=== PATIENT | male | born 1955 | race Caucasian/White ===

== ENCOUNTER 2016-11-22 19:39 | Inpatient (IN) | payer MEDICARE, OTHER ==
[2016-11-22] MEDS ORDERED: NORMAL SALINE 1000 ML 1,000 ML IV ONE ×2 (19:43→22:45)
--- NOTE | 2016-11-22 20:15 | ER Document Report ---
ED General - General Mode of Arrival: Ambulatory Information source: Patient TRAVEL OUTSIDE OF THE [place] IN LAST 30 DAYS: No - HPI Onset: This evening <ROSA RODRIGUEZ - Last Filed: 11/22/16 22:38> <VIVIAN HERNANDEZ - Last Filed: 11/22/16 23:27> - General Stated Complaint: ALTERED MENTAL STATUS Time Seen by Provider: 11/22/16 19:42 Notes: Patient is a 61 year old male that presents to the emergency department today with complaints of "acting strange" according to the at bedside. states yesterday the patient's urine bag from condom cath was red in color. Patient received 975 mg of tylenol en route secondary to a temperature of 101.3 according to EMS report. Patient and deny a cough or nausea. (ROSA RODRIGUEZ ) - Related Data Allergies/Adverse Reactions: No Known Allergies Allergy (Verified 11/22/16 22:19) Past Medical History - General Information source: Patient - Social History Smoking Status: Never Smoker Frequency of alcohol use: None Drug Abuse: None Lives with: Family Family History: Reviewed & Not Pertinent Neurological Medical History: Reports: Hx Cerebrovascular Accident Musculoskeltal Medical History: Reports Hx Arthritis Psychiatric Medical History: Reports: Hx Depression Past Surgical History: Reports: Hx Orthopedic Surgery - arthroscopy x both knees , left knee replacement, left shoulder - Immunizations Hx Diphtheria, Pertussis, Tetanus Vaccination: Yes Hx Pneumococcal Vaccination: 12/09/07 <ROSA RODRIGUEZ - Last Filed: 11/22/16 22:38> Review of Systems - Review of Systems Constitutional: See HPI, Fever, Other - "acting strange" per EENT: No symptoms reported Cardiovascular: No symptoms reported Respiratory: denies: Cough Gastrointestinal: denies: Nausea Genitourinary: No symptoms reported Male Genitourinary: No symptoms reported Musculoskeletal: No symptoms reported Skin: No symptoms reported Hematologic/Lymphatic: No symptoms reported Neurological/Psychological: No symptoms reported -: Yes All other systems reviewed and negative <ROSA RODRIGUEZ - Last Filed: 11/22/16 22:38> Physical Exam <ROSA RODRIGUEZ - Last Filed: 11/22/16 22:38> <VIVIAN HERNANDEZ - Last Filed: 11/22/16 23:27> - Vital signs Vitals: Temp 99.2 F 11/22/16 19:43 - Notes Notes: Physical Exam: General: Febrile. HEENT: Normocephalic. Atraumatic. PERRL. Extraocular movements intact. Oropharynx clear. Neck: Supple. Non-tender. Respiratory: No respiratory distress. Clear and equal breath sounds bilaterally. Cardiovascular: Tachycardic, regular rhythm. Abdominal: Obese. Non-tender. No distension. Normal Bowel Sounds. Back: Non-tender. No deformity or step off. Extremities: Moves all four extremities. Upper extremities: Normal inspection. Normal ROM. Lower extremities: Chronic edema bilaterally, right greater than left. Neurological: Confused. Normal speech. Psychological: Normal affect. Normal Mood. Skin: Warm. Dry. Normal color. (ROSA RODRIGUEZ) Course - Laboratory Result Diagrams: 11/22/16 20:10 11/22/16 21:30 <ROSA RODRIGUEZ - Last Filed: 11/22/16 22:38> - Laboratory Result Diagrams: 11/22/16 20:10 11/22/16 21:30 - Diagnostic Test Radiology reviewed: Image reviewed, Reports reviewed - EKG Interpretation by Nd EKG shows normal: Sinus rhythm <VIVIAN HERNANDEZ - Last Filed: 11/22/16 23:27> - Re-evaluation Re-evalutation: 11/22/16 Patient is a 61-year-old male who is brought in for his for altered mental status and fever. Patient has been using condom catheter during the day due to a chronic incontinence. Condom catheter is new. Patient has foul-smelling urine. Bacteria in urine. Patient initially had fever which was treated by EMS with Tylenol. He is hot again and receiving another dose of Tylenol. Patient initially was improving with his mental status. Patient's blood pressure has started to drop. I had ordered fluid bolus but this was delayed by nursing due to leg swelling which is chronic for this patient. Second line was placed and patient is now on his third liter of fluid with improvement of his blood pressure. Patient has been given IV antibiotics with urine and blood culture sent. He was discussed with the hospitalist and will be admitted to the ICU. Of note, CT discussed with radiologist. No acute findings on CT per radiologist. (VIVIAN HERNANDEZ) - Vital Signs Vital signs: Temp Pulse Resp BP Pulse Ox 99.2 F 12 92/53 L 100 11/22/16 19:43 11/22/16 22:02 11/22/16 22:02 11/22/16 22:01 - Laboratory Laboratory results interpreted by me: 11/22/16 11/22/16 11/22/16 20:10 20:10 21:30 WBC 15.1 H RBC 4.27 L Hgb 13.4 L Seg Neutrophils % 82.3 H Lymphocytes % 8.4 L Absolute Neutrophils 12.5 H Potassium 3.4 L Glucose 111 H Urine Blood SMALL H Ur Leukocyte Esterase TRACE H Critical Care Note - Critical Care Note Total time excluding time spent on procedures (mins): 90 - Evaluation and management of fever, altered mental status, hypotension, multiple re-evaluations , coordination with hospitalist, admission to ICU, counseling of family <VIVIAN HERNANDEZ - Last Filed: 11/22/16 23:27> Discharge <ROSA RODRIGUEZ - Last Filed: 11/22/16 22:38> - Discharge Admitting Provider: [facility] Admitted: ICU <VIVIAN HERNANDEZ - Last Filed: 11/22/16 23:27> - Discharge Clinical Impression: UTI (urinary tract infection) Qualifiers: Urinary tract infection type: site unspecified Hematuria presence: without hematuria Qualified Code(s): N39.0 - Urinary tract infection, site not specified Sepsis Qualifiers: Sepsis type: sepsis due to unspecified organism Qualified Code(s): A41.9 - Sepsis, unspecified organism Condition: Stable Disposition: ADMITTED INPATIENT Scribe Attestation: 11/22/16 23:25 I personally performed the services described in the documentation, reviewed and edited the documentation which was dictated to the scribe in my presence, and it accurately records my words and actions. (VIVIAN HERNANDEZ) Scribe Documentation - Scribe Written by Omid:: Omid Veras, 11/22/[id number] acting as scribe for :: Madelyn <ROSA RODRIGUEZ - Last Filed: 11/22/16 22:38>
[2016-11-22] MEDS ORDERED: NORMAL SALINE 500 ML IV ONE ×2 (20:30→22:15)
[2016-11-22 20:33] LABS: ABSOLUTE BASOPHILS # (AUTO) 0.1 10^3/uL (0.0-0.2); ABSOLUTE LYMPHOCYTES (AUTO) 1.3 10^3/uL (0.5-4.7); ABSOLUTE MONOCYTES (AUTO) 1.3 10^3/uL (0.1-1.4); ABSOLUTE NEUT (AUTO) 12.5 10^3/uL (1.7-8.2); BASOPHILS % (AUTO) 0.4 % (0-2); EOSINOPHILS % (AUTO) 0.3 % (0-6); HEMATOCRIT 39.4 % (37.9-51.0); HEMOGLOBIN 13.4 g/dL (13.5-17.0); HGB HCT DIFFERENCE 0.8; LYMPHOCYTES % (AUTO) 8.4 % (13-45); MEAN CORPUSCULAR HEMOGLOBIN 31.5 pg (27.0-33.4); MEAN CORPUSCULAR HGB CONC 34.1 g/dL (32.0-36.0); MEAN CORPUSCULAR VOLUME 92 fl (80-97); MONOCYTES % (AUTO) 8.6 % (3-13); RED BLOOD COUNT 4.27 10^6/uL (4.35-5.55); RED CELL DISTRIBUTION WIDTH 13.5 % (11.5-14.0); SEGMENTED NEUTROPHILS % (AUTO) 82.3 % (42-78); WHITE BLOOD COUNT 15.1 10^3/uL (4.0-10.5)
[2016-11-22 20:47] LABS: VENOUS BLOOD BASE EXCESS 1.3 mmol/L; VENOUS BLOOD PCO2 59.7 mmHg (35-63); VENOUS BLOOD PH 7.3 (7.30-7.42)
[2016-11-22 20:52] LABS: APPEARANCE,URINE CLEAR; BILIRUBIN,URINE NEGATIVE (NEGATIVE); GLUCOSE, URINE NEGATIVE (NEGATIVE); KETONES,URINE NEGATIVE (NEGATIVE); LEUKOCYTE ESTERASE,URINE TRACE (NEGATIVE); NITRITE,URINE NEGATIVE (NEGATIVE); PROTEIN,URINE NEGATIVE (NEGATIVE); UROBILINOGEN,URINE NEGATIVE mg/dL (<2.0)
--- NOTE | 2016-11-22 21:38 | RADIOLOGY REPORT (SQ) ---
EXAM DESCRIPTION: CHEST SINGLE VIEW COMPLETED DATE/TIME: 11/22/2016 9:26 pm REASON FOR STUDY: fever, AMS COMPARISON: 10/30/2012. EXAM PARAMETERS: NUMBER OF VIEWS: One view. TECHNIQUE: Single frontal radiographic view of the chest acquired. RADIATION DOSE: NA LIMITATIONS: None. FINDINGS: LUNGS AND PLEURA: Chronic elevation of the left hemidiaphragm. No opacities, masses or pn eumothorax. No pleural effusion. MEDIASTINUM AND HILAR STRUCTURES: No masses. Contour normal. HEART AND VASCULAR STRUCTURES: Heart normal in size. Normal vasculature. BONES: No acute findings. HARDWARE: Spinal stimulator. OTHER: No other significant finding. IMPRESSION: NO ACUTE RADIOGRAPHIC FINDING IN THE CHEST. TECHNICAL DOCUMENTATION: JOB ID: [id number]
[2016-11-22] MEDS ORDERED: CEFEPIME 1 GM/D5W RTU 1 GM/50 ML RTUPB IV ONE (21:41)
[2016-11-22 22:01] LABS: PROTHROMBIN TIME 13.6 SEC (11.4-15.4)
[2016-11-22 22:12] LABS: ALANINE AMINOTRANSFERASE 37 U/L (21-72); ALBUMIN 3.6 g/dL (3.5-5.0); ALKALINE PHOSPHATASE 93 U/L (38-126); ANION GAP 9 (5-19); ASPARTATE AMINO TRANSFERASE 20 U/L (17-59); BILIRUBIN,DIRECT 0.4 mg/dL (0.0-0.4); BILIRUBIN,TOTAL 0.4 mg/dL (0.2-1.3); BLOOD UREA NITROGEN 15 mg/dL (7-20); CALCIUM 8.8 mg/dL (8.4-10.2); CARBON DIOXIDE 26 mmol/L (22-30); CHLORIDE 105 mmol/L (98-107); CREATININE RESULT 0.86 mg/dL (0.52-1.25); GLUCOSE 111 mg/dL (75-110); POTASSIUM 3.4 mmol/L (3.6-5.0); SODIUM 140.2 mmol/L (137-145); TOTAL PROTEIN 6.5 g/dL (6.3-8.2)
[2016-11-22] MEDS ORDERED: ERTAPENEM SODIUM INJ 1 GM VIAL IV ONE (22:33)
[2016-11-22] MEDS ORDERED: DIAZEPAM 2 MG TABLET PO PRN (23:15)
[2016-11-22] MEDS ORDERED: NALOXONE HCL INJ/PF 0.4 MG/1 ML SDV IV ONE (23:16)
[2016-11-22] MEDS ORDERED: MAG HYDROX/AL HYDROX/SIMETH SUSP 30 ML UDCUP PO PRN (23:18)
[2016-11-22] MEDS ORDERED: ONDANSETRON HCL INJ/PF 4 MG/2 ML SDV IV PRN (23:18)
[2016-11-22] MEDS ORDERED: ACETAMINOPHEN 325 MG TABLET PO ONE (23:22)
[2016-11-22] MEDS ORDERED: DEXTROSE 5%-WATER 250 ML with NOREPINEPHRINE BITARTRATE 4 MG IV PRN ×2 (23:22)
--- NOTE | 2016-11-22 23:33 | RADIOLOGY REPORT (SQ) ---
EXAM DESCRIPTION: CT LTD RENAL STONE PROTOCOL ON COMPLETED DATE/TIME: 11/22/2016 11:08 pm REASON FOR STUDY: possible obstruction COMPARISON: None. TECHNIQUE: CT scan of the abdomen and pelvis performed without intravenous or oral contrast. Images reviewed with lung, soft tissue, and bone windows. Reconstructed coronal and sagittal MPR images revi ewed. All images stored on PACS. All CT scanners at this facility use dose modulation, iterative reconstruction, and/or weight based d osing when appropriate to reduce radiation dose to as low as reasonably achievable (ALARA). [facility]: Dose Right [facility]: CareDose [facility]: Dose Right [facility]: Teradose 4D [facility]: Smart [employer] RADIATION DOSE: Up-to-date CT equipment and radiation dose reduction techniques were employed. CTDIv ol: 18.9 mGy. DLP: 1137 mGy-cm.mGy. LIMITATIONS: None. FINDINGS: LOWER CHEST: Basilar atelectasis. No nodules or infiltrates. NON-CONTRASTED LIVER, SPLEEN, ADRENALS: Evaluation limited by lack of IV contrast. No identified sign ificant masses. PANCREAS: No masses. No peripancreatic inflammatory changes. GALLBLADDER: No identified stones by CT criteria. No inflammatory changes to suggest cholecystitis. RIGHT KIDNEY AND URETER: No suspicious masses. Assessment limited by lack of IV contrast. No signif icant calcifications. No hydronephrosis or hydroureter. LEFT KIDNEY AND URETER: Cortical cyst. No suspicious masses. Assessment limited by lack of IV contra st. No significant calcifications. No hydronephrosis or hydroureter. AORTA AND RETROPERITONEUM: No aneurysm. No retroperitoneal masses or adenopathy. BOWEL AND PERITONEAL CAVITY: Prominent stool throughout the colon. No obvious masses or inflammatory changes. No free fluid. APPENDIX: Normal. PELVIS, BLADDER, AND ABDOMINAL WALL:No abnormal masses. No free fluid. Bladder normal. BONES: Marked chronic changes in the left hip with deformity. OTHER: No other significant finding. IMPRESSION: PROMINENT STOOL THROUGHOUT THE COLON, POSSIBLY CONSTIPATION. OTHER INCIDENTAL CHRONIC F INDINGS ABOVE. NO OTHER SIGNIFICANT OR ACUTE PROCESS IN THE ABDOMEN OR PELVIS. COMMENT: Quality ID # [id number]: Final reports with documentation of one or more dose reduction techniques (e.g., Automated exposure control, adjustment of the mA and/or kV according to patient size, use of iterative reconstruction technique) TECHNICAL DOCUMENTATION: JOB ID: [id number]- All Rights Reserved
[2016-11-22] MEDS ORDERED: NALOXONE HCL INJ/PF 0.4 MG/1 ML SDV ONE (23:39)
[2016-11-22 23:49] LABS: CREATINE KINASE MB 0.63 ng/mL (<4.55)
[2016-11-22 23:53] LABS: TROPONIN I < 0.012 ng/mL
[2016-11-23] MEDS ORDERED: NOREPINEPHRINE BITARTRATE INJ/PF 4 MG/4 ML SDV IV ONE
[2016-11-23] MEDS: IPRATROPIUM/ALBUTEROL 0.5-2.5 MG/3 ML AMPUL NEB SCH ×4 (00:28→23:41)
[2016-11-23] MEDS ORDERED: LACTULOSE SYRUP 20 GM/30 ML UDCUP PO ONE (01:28)
[2016-11-23 01:38] LABS: URINE BARBITURATES SCREEN NEGATIVE; URINE METHADONE SCREEN NEGATIVE; URINE OPIATES LOW UNCONFIRMED POSITIVE; URINE PHENCYCLIDINE SCREEN NEGATIVE
[2016-11-23] MEDS ORDERED: DIAZEPAM 2 MG TABLET PO PRN (03:24)
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
[2016-11-23] MEDS: HEPARIN SOD (PORCINE) 5,000 UNIT/ML 1 ML SYRINGE SUBCUT SCH ×3 (06:03→22:06)
[2016-11-23 06:58] LABS: ABSOLUTE BASOPHILS # (AUTO) 0.1 10^3/uL (0.0-0.2); ABSOLUTE EOSINOPHILS # (AUTO) 0.1 10^3/uL (0.0-0.6); ABSOLUTE LYMPHOCYTES (AUTO) 1.4 10^3/uL (0.5-4.7); ABSOLUTE MONOCYTES (AUTO) 1.2 10^3/uL (0.1-1.4); ABSOLUTE NEUT (AUTO) 10.8 10^3/uL (1.7-8.2); BASOPHILS % (AUTO) 0.4 % (0-2); EOSINOPHILS % (AUTO) 0.5 % (0-6); LYMPHOCYTES % (AUTO) 10.6 % (13-45); MEAN CORPUSCULAR HEMOGLOBIN 31.3 pg (27.0-33.4); MEAN CORPUSCULAR HGB CONC 33.3 g/dL (32.0-36.0); MEAN CORPUSCULAR VOLUME 94 fl (80-97); MONOCYTES % (AUTO) 8.6 % (3-13); RED BLOOD COUNT 3.84 10^6/uL (4.35-5.55); SEGMENTED NEUTROPHILS % (AUTO) 79.9 % (42-78); WHITE BLOOD COUNT 13.5 10^3/uL (4.0-10.5)
[2016-11-23 07:03] LABS: ALANINE AMINOTRANSFERASE 36 U/L (21-72); ALBUMIN 3.4 g/dL (3.5-5.0); ALKALINE PHOSPHATASE 84 U/L (38-126); ANION GAP 10 (5-19); ASPARTATE AMINO TRANSFERASE 17 U/L (17-59); BILIRUBIN,DIRECT 0.4 mg/dL (0.0-0.4); BILIRUBIN,TOTAL 0.6 mg/dL (0.2-1.3); BLOOD UREA NITROGEN 11 mg/dL (7-20); CALCIUM 8.6 mg/dL (8.4-10.2); CARBON DIOXIDE 26 mmol/L (22-30); CHLORIDE 106 mmol/L (98-107); CREATINE KINASE 60 U/L (55-170); CREATININE RESULT 0.74 mg/dL (0.52-1.25); GLUCOSE 100 mg/dL (75-110); POTASSIUM 3.2 mmol/L (3.6-5.0); SODIUM 141.7 mmol/L (137-145); TOTAL PROTEIN 6.4 g/dL (6.3-8.2)
[2016-11-23 07:12] LABS: CREATINE KINASE MB 0.64 ng/mL (<4.55)
[2016-11-23 07:16] LABS: TROPONIN I < 0.012 ng/mL
[2016-11-23] MEDS ORDERED: POTASSIUM CHLORIDE 10 MEQ TABLET.SA PO ONE (08:31)
--- NOTE | 2016-11-23 08:43 | PROGRESS NOTE E ---
Progress Note NAME: ADALID MUELLER : 1955 AGE: 61Y DATE: 11/23/2016 ROOM: 609 SUBJECTIVE: The patient is a 61-year-old male, who has a past medical history of CVA in the past with sepsis syndrome, sleep apnea, urinary tract incontinence, bilateral venous stasis, anxiety, opiate dependence, multiple pain medications. He takes Xanax, as well as Ambien at night. He was brought to the emergency room because he passed out. Urinalysis showed he had some UTI. He is feeling better now and he is awake, alert and oriented. His symptoms resolved. OBJECTIVE: GENERAL: The patient is lying in bed, comfortable, not in distress. VITAL SIGNS: Saturation 93%, heart rate 84, blood pressure 105/63, HEAD: Normocephalic, atraumatic. Pupils are equal, round, reactive to light and accommodation bilaterally. Extraocular movements intact. EARS: Tympanic membranes intact bilaterally. No discharge from the ears. NOSE: No discharge from the nose. CARDIOVASCULAR: Normal S1, S2. Regular rate and rhythm. No murmur. No gallop. RESPIRATORY: Clear. ABDOMEN: Soft, nontender. MUSCULOSKELETAL: No edema. NEUROLOGICAL: Awake, alert. SKIN: No rash. LABORATORY: White blood count 15.5, hemoglobin 12, hematocrit 36. Sodium 141, potassium 3.2, creatinine 0.7. ABG: pH 12.3, PCO2 59, bicarb 13. INR 0.9. Chest x-ray unremarkable. ASSESSMENT: The patient is a 61-year-old with: 1. ALTERED MENTAL STATUS. The cause is unknown, probably from hypertension and medication. 2. POSSIBLE URINARY TRACT INFECTION. 3. SEPSIS SYNDROME. 4. HYPOTENSION. PLAN: 1. Limit benzodiazepines. 2. Continue IV for hydration. 3. Continue IV antibiotics. He is on ertapenem. 4. We will order CT scan to rule out obstruction tomorrow morning. 5. Medical necessity, he needs to stay for IV antibiotics and hypotension, as well as IV fluids. DICTATING PHYSICIAN: BUD VILLALBA M.D. [id number] PHY#: [id number] ID: [id number] JOB#: [id number] ACCT: [id number] cc: >
[2016-11-23] MEDS: DOCUSATE SODIUM 100 MG CAPSULE PO SCH ×2 (09:27→17:52)
[2016-11-23] MEDS: ARIPIPRAZOLE 5 MG TABLET PO SCH (09:27)
[2016-11-23] MEDS: CLOPIDOGREL BISULFATE 75 MG TABLET PO SCH (09:27)
[2016-11-23] MEDS ORDERED: ERTAPENEM SODIUM 1 GM in NORMAL SALINE 50 ML IV SCH (10:00)
[2016-11-23] MEDS ORDERED: CEFEPIME HCL 1.5 GM in DEXTROSE 5%-WATER 50 ML IV SCH (10:00)
--- NOTE | 2016-11-23 11:26 | RADIOLOGY REPORT (SQ) ---
EXAM DESCRIPTION: CT HEAD WITHOUT COMPLETED DATE/TIME: 11/23/2016 11:16 am REASON FOR STUDY: AMS on admission COMPARISON: 10/28/2012. TECHNIQUE: Axial images acquired through the brain without intravenous contrast. Images reviewed wi th bone, brain and subdural windows. Images stored on PACS. All CT scanners at this facility use dose modulation, iterative reconstruction, and/or weight based d osing when appropriate to reduce radiation dose to as low as reasonably achievable (ALARA). [facility]: Dose Right [facility]: CareDose [facility]: Dose Right [facility]: Teradose 4D [facility]: [employer] RADIATION DOSE: Up-to-date CT equipment and radiation dose reduction techniques were employed. CTDIv ol: 64.6 mGy. DLP: 1292 mGy-cm. mGy. LIMITATIONS: None. FINDINGS: VENTRICLES: Normal size and contour. CEREBRUM: No masses. No hemorrhage. No midline shift. No evidence for acute infarction. Normal gra y/white matter differentiation. No areas of low density in the white matter. CEREBELLUM: No masses. No hemorrhage. No alteration of density. No evidence for acute infarction. EXTRAAXIAL SPACES: No fluid collections. No masses. ORBITS AND GLOBE: No intra- or extraconal masses. Normal contour of globe without masses. CALVARIUM: No fracture. Small defect secondary to judah hole on the right. PARANASAL SINUSES: No fluid or mucosal thickening. SOFT TISSUES: No mass or hematoma. OTHER: No other significant finding. IMPRESSION: NO ACUTE FINDINGS. COMMENT: Quality ID # [id number]: Final reports with documentation of one or more dose reduction techniques (e.g., Automated exposure control, adjustment of the mA and/or kV according to patient size, use of iterative reconstruction technique) TECHNICAL DOCUMENTATION: JOB ID: [id number] [employer]- All Rights Reserved
--- NOTE | 2016-11-23 11:39 | EKG REPORT ---
SEVERITY:- ABNORMAL ECG - SINUS TACHYCARDIA PROBABLE POSTERIOR INFARCT : Confirmed by: Whit Burdick 23-Nov-2016 11:38:36
[2016-11-23 14:14] LABS: CREATINE KINASE MB 0.57 ng/mL (<4.55)
[2016-11-23 14:18] LABS: TROPONIN I < 0.012 ng/mL
[2016-11-23] MEDS: ERTAPENEM SODIUM 1 GM in NORMAL SALINE 50 ML IV SCH (22:05)
[2016-11-23] MEDS: FLUTICASONE NASAL SPRAY 50 MCG/SPRY 120 SPRAY/16 GM NAREB SCH (22:06)
[2016-11-23] MEDS: DIAZEPAM 5 MG TABLET PO PRN (22:07)
[2016-11-24 04:16] LABS: ABSOLUTE BASOPHILS # (AUTO) 0.1 10^3/uL (0.0-0.2); ABSOLUTE EOSINOPHILS # (AUTO) 0.1 10^3/uL (0.0-0.6); ABSOLUTE LYMPHOCYTES (AUTO) 1.7 10^3/uL (0.5-4.7); ABSOLUTE MONOCYTES (AUTO) 0.7 10^3/uL (0.1-1.4); BASOPHILS % (AUTO) 0.5 % (0-2); EOSINOPHILS % (AUTO) 1.1 % (0-6); HEMOGLOBIN 12.4 g/dL (13.5-17.0); HGB HCT DIFFERENCE 1.2; LYMPHOCYTES % (AUTO) 16.2 % (13-45); MEAN CORPUSCULAR HEMOGLOBIN 31.7 pg (27.0-33.4); MEAN CORPUSCULAR HGB CONC 34.4 g/dL (32.0-36.0); MEAN CORPUSCULAR VOLUME 92 fl (80-97); MONOCYTES % (AUTO) 6.9 % (3-13); SEGMENTED NEUTROPHILS % (AUTO) 75.3 % (42-78); WHITE BLOOD COUNT 10.6 10^3/uL (4.0-10.5)
[2016-11-24 04:26] LABS: ALANINE AMINOTRANSFERASE 36 U/L (21-72); ALBUMIN 3.7 g/dL (3.5-5.0); ALKALINE PHOSPHATASE 90 U/L (38-126); ANION GAP 11 (5-19); ASPARTATE AMINO TRANSFERASE 22 U/L (17-59); BILIRUBIN,DIRECT 0.4 mg/dL (0.0-0.4); BILIRUBIN,TOTAL 0.4 mg/dL (0.2-1.3); BLOOD UREA NITROGEN 12 mg/dL (7-20); CALCIUM 8.9 mg/dL (8.4-10.2); CARBON DIOXIDE 23 mmol/L (22-30); CHLORIDE 109 mmol/L (98-107); CREATININE RESULT 0.74 mg/dL (0.52-1.25); GLUCOSE 106 mg/dL (75-110); POTASSIUM 3.2 mmol/L (3.6-5.0); SODIUM 142.5 mmol/L (137-145); TOTAL PROTEIN 6.8 g/dL (6.3-8.2)
[2016-11-24] MEDS: HEPARIN SOD (PORCINE) 5,000 UNIT/ML 1 ML SYRINGE SUBCUT SCH ×3 (06:10→22:50)
[2016-11-24] MEDS ORDERED: LACTULOSE SYRUP 20 GM/30 ML UDCUP PO ONE (07:39)
[2016-11-24] MEDS: IPRATROPIUM/ALBUTEROL 0.5-2.5 MG/3 ML AMPUL NEB SCH ×2 (07:57→17:26)
[2016-11-24] MEDS: DOCUSATE SODIUM 100 MG CAPSULE PO SCH ×2 (08:02→17:23)
[2016-11-24] MEDS: CLOPIDOGREL BISULFATE 75 MG TABLET PO SCH (08:03)
[2016-11-24] MEDS: ARIPIPRAZOLE 5 MG TABLET PO SCH (08:04)
[2016-11-24] MEDS: POTASSIUM CHLORIDE 10 MEQ TABLET.SA PO SCH ×2 (08:05→22:51)
--- NOTE | 2016-11-24 08:18 | PROGRESS NOTE E ---
Progress Note NAME: ADALID MUELLER : 1955 AGE: 61Y DATE: 11/24/2016 ROOM: 609 SUBJECTIVE: The patient is a 61-year-old male, who has a past medical history of CVA in the past with sepsis syndrome, sleep apnea, urinary incontinence, bilateral venous stasis, anxiety, opiate dependence, multiple pain medications. He was admitted with confusion yesterday, felt to be due to medications. CT scan of the head was unremarkable. He had urinalysis showing some UTI. Today, he is feeling much better; however, he had some confusion last night and also a combination of intoxication. OBJECTIVE: GENERAL: The patient is lying in bed, comfortable, not in distress. VITAL SIGNS: Blood pressure 134/90, heart rate 86, temperature 98.6, saturation 95% on room air. HEAD: Normocephalic, atraumatic. Pupils are equal, round, reactive to light and accommodation bilaterally. Extraocular movements intact. EARS: Tympanic membranes intact bilaterally. No discharge from the ears. NOSE: No discharge from the nose. NECK: Supple. No JVD. No thyromegaly. No lymphadenopathy. CARDIOVASCULAR: Normal S1, S2. Regular rate and rhythm. No murmur. No gallop. RESPIRATORY: Clear. ABDOMEN: Soft, nontender. MUSCULOSKELETAL: No edema. NEUROLOGICAL: Awake, alert. SKIN: No rash. LABORATORY: White blood count 10.6, hemoglobin 12.4. Sodium 142, potassium 3.2, creatinine 0.7. Urinalysis was unremarkable. ASSESSMENT: The patient is a 61-year-old with: 1. ALTERED MENTAL STATUS, PROBABLY FROM MEDICATION AND URINARY TRACT INFECTION, RESOLVED. 2. POSSIBLE URINARY TRACT INFECTION. 3. POSSIBLE SEPSIS SYNDROME. 4. HYPOTENSION. PLAN: 1. Limit benzodiazepines. 2. Continue IV fluid. 3. Continue IV antibiotics. He is on ertapenem. 4. CT scan of the head was unremarkable, no stroke. Physical therapy. 5. Replace his potassium with KCL 20 mEq daily. 6. Lactulose for constipation. 7. Laboratory tomorrow morning. 8. Medical necessity for IV antibiotic. DICTATING PHYSICIAN: BUD VILLALBA M.D. [id number] PHY#: [id number] ID: [id number] JOB#: [id number] ACCT: [id number] cc: >
[2016-11-24] MEDS ORDERED: (PENDING PHARMACY ID) (Mirabegron [Myrbetriq] 50 MG) PO SCH (10:00)
[2016-11-24] MEDS ORDERED: (PENDING PHARMACY ID) (Diclofenac Epolamine [Flector] 1 PATCH) TOP SCH (10:00)
[2016-11-24] MEDS ORDERED: (PENDING PHARMACY ID) (Diclofenac Sodium [Voltaren] 4 GM) TOP SCH (10:00)
[2016-11-24] MEDS ORDERED: CHOLECALCIFEROL (D3) 400 UNIT TABLET PO SCH (10:00)
[2016-11-24] MEDS ORDERED: VENLAFAXINE HCL 75 MG CAP.SR.24H PO ONE (11:30)
[2016-11-24] MEDS ORDERED: THIAMINE HCL 100 MG TABLET PO ONE (11:30)
[2016-11-24] MEDS: MODAFINIL 100 MG TABLET PO SCH (12:12)
[2016-11-24] MEDS ORDERED: BISACODYL 10 MG SUPP.RECT PR PRN (14:10)
[2016-11-24] MEDS: MORPHINE SULFATE SR 30 MG TABLET PO PRN (15:31)
[2016-11-24] MEDS: CHOLECALCIFEROL (D3) 400 UNIT TABLET PO SCH (17:23)
[2016-11-24] MEDS: THIAMINE HCL 100 MG TABLET PO SCH (17:24)
[2016-11-24] MEDS ORDERED: ROPINIROLE HCL 4 MG PO SCH (22:00)
[2016-11-24] MEDS ORDERED: IMIPRAMINE PAMOATE 75 MG PO SCH (22:00)
[2016-11-24] MEDS ORDERED: SIMVASTATIN 40 MG TABLET PO SCH (22:00)
[2016-11-24] MEDS: FLUTICASONE NASAL SPRAY 50 MCG/SPRY 120 SPRAY/16 GM NAREB SCH (22:49)
[2016-11-24] MEDS: ERTAPENEM SODIUM 1 GM in NORMAL SALINE 50 ML IV SCH (22:50)
[2016-11-24] MEDS: TOPIRAMATE 100 MG TABLET PO SCH (22:51)
[2016-11-24] MEDS: SIMVASTATIN 10 MG TABLET PO SCH (22:51)
[2016-11-24] MEDS: VENLAFAXINE HCL 75 MG CAP.SR.24H PO SCH (22:52)
[2016-11-24] MEDS: ROPINIROLE HCL 2 MG TABLET PO SCH (22:52)
[2016-11-24] MEDS: DIAZEPAM 5 MG TABLET PO PRN (22:52)
[2016-11-25] MEDS: IPRATROPIUM/ALBUTEROL 0.5-2.5 MG/3 ML AMPUL NEB SCH ×3 (00:31→16:54)
[2016-11-25 05:02] LABS: ABSOLUTE BASOPHILS # (AUTO) 0.1 10^3/uL (0.0-0.2); ABSOLUTE EOSINOPHILS # (AUTO) 0.2 10^3/uL (0.0-0.6); ABSOLUTE LYMPHOCYTES (AUTO) 2.4 10^3/uL (0.5-4.7); ABSOLUTE MONOCYTES (AUTO) 0.8 10^3/uL (0.1-1.4); BASOPHILS % (AUTO) 0.5 % (0-2); EOSINOPHILS % (AUTO) 2.3 % (0-6); HEMATOCRIT 37.5 % (37.9-51.0); HEMOGLOBIN 12.8 g/dL (13.5-17.0); HGB HCT DIFFERENCE 0.9; LYMPHOCYTES % (AUTO) 22.9 % (13-45); MEAN CORPUSCULAR HEMOGLOBIN 31.8 pg (27.0-33.4); MEAN CORPUSCULAR HGB CONC 34.2 g/dL (32.0-36.0); MEAN CORPUSCULAR VOLUME 93 fl (80-97); RED BLOOD COUNT 4.03 10^6/uL (4.35-5.55); RED CELL DISTRIBUTION WIDTH 12.9 % (11.5-14.0); SEGMENTED NEUTROPHILS % (AUTO) 66.3 % (42-78); WHITE BLOOD COUNT 10.5 10^3/uL (4.0-10.5)
[2016-11-25] MEDS: HEPARIN SOD (PORCINE) 5,000 UNIT/ML 1 ML SYRINGE SUBCUT SCH ×3 (06:50→22:42)
[2016-11-25] MEDS ORDERED: ONDANSETRON HCL INJ/PF 4 MG/2 ML SDV IV PRN (08:00)
[2016-11-25] MEDS ORDERED: MAG HYDROX/AL HYDROX/SIMETH SUSP 30 ML UDCUP PO PRN (08:00)
[2016-11-25] MEDS: MODAFINIL 100 MG TABLET PO SCH ×2 (08:56→11:13)
[2016-11-25] MEDS: THIAMINE HCL 100 MG TABLET PO SCH ×2 (11:10→17:13)
[2016-11-25] MEDS: CLOPIDOGREL BISULFATE 75 MG TABLET PO SCH (11:10)
[2016-11-25] MEDS: DOCUSATE SODIUM 100 MG CAPSULE PO SCH ×2 (11:10→17:13)
[2016-11-25] MEDS: TOPIRAMATE 100 MG TABLET PO SCH ×2 (11:10→22:41)
[2016-11-25] MEDS: CHOLECALCIFEROL (D3) 400 UNIT TABLET PO SCH ×2 (11:11→17:14)
[2016-11-25] MEDS: VENLAFAXINE HCL 75 MG CAP.SR.24H PO SCH ×2 (11:21→22:42)
[2016-11-25] MEDS: ARIPIPRAZOLE 5 MG TABLET PO SCH (11:21)
--- NOTE | 2016-11-25 17:41 | PDOC PROGRESS REPORT ---
Subjective Progress Note for:: 11/25/16 Subjective:: Pt states that he is doing better today. Pt states that he is feeling better. Nursing called because pt has breathing treatments ordered. Physical Exam Vital Signs: Temp Pulse Resp BP Pulse Ox 97.8 F 103 H 18 107/74 98 11/25/16 15:09 11/25/16 15:09 11/25/16 15:09 11/25/16 15:09 11/25/16 15:09 Intake & Output 11/24/16 11/25/16 11/26/16 06:59 06:59 06:59 Intake Total 2352 1160 Output Total 9050 4400 Balance -6698 -3240 Weight 124 kg 126.5 kg General appearance: PRESENT: no acute distress, well-developed, well-nourished Head exam: PRESENT: atraumatic, normocephalic Eye exam: PRESENT: conjunctiva pink, EOMI. ABSENT: scleral icterus Ear exam: PRESENT: normal external ear exam Mouth exam: PRESENT: moist, tongue midline Neck exam: ABSENT: carotid bruit, JVD, lymphadenopathy, thyromegaly Respiratory exam: PRESENT: clear to auscultation cedric, other - diminished at bases. ABSENT: rales, rhonchi, wheezes Cardiovascular exam: PRESENT: RRR. ABSENT: diastolic murmur, rubs, systolic murmur Pulses: PRESENT: normal dorsalis pedis pul GI/Abdominal exam: PRESENT: normal bowel sounds, soft. ABSENT: distended, guarding, mass, organolmegaly, rebound, tenderness Rectal exam: PRESENT: deferred Extremities exam: PRESENT: other - teds in place Neurological exam: PRESENT: alert, awake, oriented to person, oriented to place , oriented to time, oriented to situation, CN II-XII grossly intact. ABSENT: motor sensory deficit Psychiatric exam: PRESENT: appropriate affect, normal mood. ABSENT: homicidal ideation, suicidal ideation Skin exam: PRESENT: dry, intact, warm. ABSENT: cyanosis, rash Results Laboratory Results: 11/25/16 04:01 11/24/16 04:07 11/25/16 04:01 WBC 10.5 RBC 4.03 L Hgb 12.8 L Hct 37.5 L MCV 93 MCH 31.8 MCHC 34.2 RDW 12.9 Plt Count 250 Seg Neutrophils % 66.3 Lymphocytes % 22.9 Monocytes % 8.0 Eosinophils % 2.3 Basophils % 0.5 Absolute Neutrophils 7.0 Absolute Lymphocytes 2.4 Absolute Monocytes 0.8 Absolute Eosinophils 0.2 Absolute Basophils 0.1 11/23/16 11/23/16 11/23/16 06:37 06:37 13:35 Creatine Kinase 60 64 CK-MB (CK-2) 0.64 Troponin I < 0.012 11/23/16 13:35 Creatine Kinase CK-MB (CK-2) 0.57 Troponin I < 0.012 Impressions: Chest X-Ray 11/22/16 00:00 IMPRESSION: NO ACUTE RADIOGRAPHIC FINDING IN THE CHEST. Limited or Localized CT 11/22/16 22:37 IMPRESSION: PROMINENT STOOL THROUGHOUT THE COLON, POSSIBLY CONSTIPATION. OTHER INCIDENTAL CHRONIC FINDINGS ABOVE. NO OTHER SIGNIFICANT OR ACUTE PROCESS IN THE ABDOMEN OR PELVIS. Head CT 11/23/16 00:00 IMPRESSION: NO ACUTE FINDINGS. Assessment & Plan - Diagnosis (1) Sepsis Qualifiers: Qualified Code(s): A41.9 - Sepsis, unspecified organism Is this a current diagnosis for this admission?: Yes Plan: Secondary to Acinetobacter baumannii: Will discontinue Invanz. Will place on keflex. (2) Hypokalemia Is this a current diagnosis for this admission?: Yes Plan: Will give Potassium replacement. Will check labs in am (3) UTI (urinary tract infection) Qualifiers: Urinary tract infection type: acute cystitis Hematuria presence: without hematuria Qualified Code(s): N30.00 - Acute cystitis without hematuria Is this a current diagnosis for this admission?: Yes Plan: Secondary to Acinetobacter Baumannii: Will place on keflex. Will discontinue Invanz. (4) Chronic pain Is this a current diagnosis for this admission?: Yes (5) Venous stasis Is this a current diagnosis for this admission?: Yes (6) Gait abnormality Is this a current diagnosis for this admission?: Yes Plan: Will have PT/OT evaluate pt. (7) Low back pain Qualifiers: Chronicity: chronic Is this a current diagnosis for this admission?: Yes Plan: Supportive care (8) DVT prophylaxis Is this a current diagnosis for this admission?: Yes Plan: Heparin - Time Time Spent with patient: 15-24 minutes
[2016-11-25] MEDS ORDERED: POTASSIUM CHLORIDE 10 MEQ TABLET.SA PO ONE (18:00)
[2016-11-25] MEDS: SIMVASTATIN 10 MG TABLET PO SCH (22:41)
[2016-11-25] MEDS: CEPHALEXIN 500 MG CAPSULE PO SCH (22:42)
[2016-11-25] MEDS: IMIPRAMINE PAMOATE 75 MG PO SCH (22:42)
[2016-11-25] MEDS: ROPINIROLE HCL 2 MG TABLET PO SCH (22:42)
[2016-11-25] MEDS: NYSTATIN TOPICAL POWDER 15 GM TP SCH (22:59)
[2016-11-25] MEDS: FLUTICASONE NASAL SPRAY 50 MCG/SPRY 120 SPRAY/16 GM NAREB SCH (23:00)
[2016-11-26] MEDS: MORPHINE SULFATE SR 30 MG TABLET PO PRN ×2 (00:25→13:58)
[2016-11-26] MEDS: ACETAMINOPHEN 325 MG TABLET PO PRN ×2 (00:25→08:19)
[2016-11-26 04:47] LABS: ABSOLUTE EOSINOPHILS # (AUTO) 0.2 10^3/uL (0.0-0.6); ABSOLUTE LYMPHOCYTES (AUTO) 2.3 10^3/uL (0.5-4.7); ABSOLUTE MONOCYTES (AUTO) 0.8 10^3/uL (0.1-1.4); ABSOLUTE NEUT (AUTO) 5.3 10^3/uL (1.7-8.2); BASOPHILS % (AUTO) 0.6 % (0-2); EOSINOPHILS % (AUTO) 2.7 % (0-6); HEMATOCRIT 39.3 % (37.9-51.0); HEMOGLOBIN 13.6 g/dL (13.5-17.0); HGB HCT DIFFERENCE 1.5; LYMPHOCYTES % (AUTO) 26.9 % (13-45); MEAN CORPUSCULAR HEMOGLOBIN 31.8 pg (27.0-33.4); MEAN CORPUSCULAR HGB CONC 34.5 g/dL (32.0-36.0); MEAN CORPUSCULAR VOLUME 92 fl (80-97); MONOCYTES % (AUTO) 9.4 % (3-13); RED BLOOD COUNT 4.26 10^6/uL (4.35-5.55); RED CELL DISTRIBUTION WIDTH 12.8 % (11.5-14.0); SEGMENTED NEUTROPHILS % (AUTO) 60.4 % (42-78); WHITE BLOOD COUNT 8.7 10^3/uL (4.0-10.5)
[2016-11-26 05:06] LABS: ANION GAP 12 (5-19); BLOOD UREA NITROGEN 15 mg/dL (7-20); CALCIUM 9.7 mg/dL (8.4-10.2); CARBON DIOXIDE 26 mmol/L (22-30); CHLORIDE 104 mmol/L (98-107); CREATININE RESULT 0.87 mg/dL (0.52-1.25); GLUCOSE 105 mg/dL (75-110); MAGNESIUM 2.3 mg/dL (1.6-2.3); POTASSIUM 3.6 mmol/L (3.6-5.0); SODIUM 141.6 mmol/L (137-145)
[2016-11-26] MEDS: HEPARIN SOD (PORCINE) 5,000 UNIT/ML 1 ML SYRINGE SUBCUT SCH ×3 (06:27→23:30)
[2016-11-26] MEDS: MODAFINIL 100 MG TABLET PO SCH ×2 (08:20→13:58)
[2016-11-26] MEDS: CEPHALEXIN 500 MG CAPSULE PO SCH ×2 (10:34→23:29)
[2016-11-26] MEDS: TOPIRAMATE 100 MG TABLET PO SCH ×2 (10:35→23:24)
[2016-11-26] MEDS: CLOPIDOGREL BISULFATE 75 MG TABLET PO SCH (10:35)
[2016-11-26] MEDS: VENLAFAXINE HCL 75 MG CAP.SR.24H PO SCH ×2 (10:35→23:29)
[2016-11-26] MEDS: CHOLECALCIFEROL (D3) 400 UNIT TABLET PO SCH ×2 (10:35→18:42)
[2016-11-26] MEDS: ARIPIPRAZOLE 5 MG TABLET PO SCH (10:35)
[2016-11-26] MEDS: THIAMINE HCL 100 MG TABLET PO SCH ×2 (10:36→18:41)
[2016-11-26] MEDS: DOCUSATE SODIUM 100 MG CAPSULE PO SCH ×2 (10:36→18:41)
[2016-11-26] MEDS: Mirabegron [Myrbetriq] 50 MG PO SCH (10:37)
[2016-11-26] MEDS: NYSTATIN TOPICAL POWDER 15 GM TP SCH ×4 (10:38→23:30)
--- NOTE | 2016-11-26 18:24 | PDOC PROGRESS REPORT ---
Subjective Progress Note for:: 11/26/16 Subjective:: states that she is not able to take care of the patient at home due to not having help. Pt agreed to Rehab. Physical Exam Vital Signs: Temp Pulse Resp BP Pulse Ox 98.2 F 85 17 100/62 95 11/26/16 16:04 11/26/16 16:04 11/26/16 16:04 11/26/16 16:04 11/26/16 16:04 Intake & Output 11/25/16 11/26/16 11/27/16 06:59 06:59 06:59 Intake Total 1160 2770 620 Output Total 4400 8400 700 Balance -3240 -5630 -80 Weight 126.5 kg 126.5 kg General appearance: PRESENT: no acute distress, well-developed, well-nourished Head exam: PRESENT: atraumatic, normocephalic Eye exam: PRESENT: conjunctiva pink, EOMI. ABSENT: scleral icterus Ear exam: PRESENT: normal external ear exam Mouth exam: PRESENT: moist, tongue midline Neck exam: ABSENT: carotid bruit, JVD, lymphadenopathy, thyromegaly Respiratory exam: PRESENT: clear to auscultation cedric. ABSENT: rales, rhonchi, wheezes Cardiovascular exam: PRESENT: RRR. ABSENT: diastolic murmur, rubs, systolic murmur Pulses: PRESENT: normal dorsalis pedis pul GI/Abdominal exam: PRESENT: normal bowel sounds, soft. ABSENT: distended, guarding, mass, organolmegaly, rebound, tenderness Rectal exam: PRESENT: deferred Extremities exam: PRESENT: full ROM. ABSENT: calf tenderness, clubbing, pedal edema Neurological exam: PRESENT: alert, awake, oriented to person, oriented to place , oriented to time, oriented to situation, CN II-XII grossly intact. ABSENT: motor sensory deficit Skin exam: PRESENT: dry, intact, warm. ABSENT: cyanosis, rash Results Laboratory Results: 11/26/16 04:34 11/26/16 04:34 11/26/16 11/26/16 04:34 04:34 WBC 8.7 RBC 4.26 L Hgb 13.6 Hct 39.3 MCV 92 MCH 31.8 MCHC 34.5 RDW 12.8 Plt Count 259 Seg Neutrophils % 60.4 Lymphocytes % 26.9 Monocytes % 9.4 Eosinophils % 2.7 Basophils % 0.6 Absolute Neutrophils 5.3 Absolute Lymphocytes 2.3 Absolute Monocytes 0.8 Absolute Eosinophils 0.2 Absolute Basophils 0.0 Sodium 141.6 Potassium 3.6 Chloride 104 Carbon Dioxide 26 Anion Gap 12 BUN 15 Creatinine 0.87 Est GFR ( Amer) > 60 Est GFR (Non-Af Amer) > 60 Glucose 105 Calcium 9.7 Magnesium 2.3 11/23/16 11/23/16 11/23/16 06:37 06:37 13:35 Creatine Kinase 60 64 CK-MB (CK-2) 0.64 Troponin I < 0.012 11/23/16 13:35 Creatine Kinase CK-MB (CK-2) 0.57 Troponin I < 0.012 Impressions: Chest X-Ray 11/22/16 00:00 IMPRESSION: NO ACUTE RADIOGRAPHIC FINDING IN THE CHEST. Limited or Localized CT 11/22/16 22:37 IMPRESSION: PROMINENT STOOL THROUGHOUT THE COLON, POSSIBLY CONSTIPATION. OTHER INCIDENTAL CHRONIC FINDINGS ABOVE. NO OTHER SIGNIFICANT OR ACUTE PROCESS IN THE ABDOMEN OR PELVIS. Head CT 11/23/16 00:00 IMPRESSION: NO ACUTE FINDINGS. Assessment & Plan - Diagnosis (1) Sepsis Qualifiers: Qualified Code(s): A41.9 - Sepsis, unspecified organism Is this a current diagnosis for this admission?: Yes Plan: Secondary to Acinetobacter baumannii: Will continue on keflex. (2) Hypokalemia Is this a current diagnosis for this admission?: Yes Plan: Resolved. (3) UTI (urinary tract infection) Qualifiers: Urinary tract infection type: acute cystitis Hematuria presence: without hematuria Qualified Code(s): N30.00 - Acute cystitis without hematuria Is this a current diagnosis for this admission?: Yes Plan: Secondary to Acinetobacter Baumannii: Will continue keflex. (4) Chronic pain Is this a current diagnosis for this admission?: Yes Plan: Continue current pain regimen. (5) Venous stasis Is this a current diagnosis for this admission?: Yes Plan: Supportive care. (6) Gait abnormality Is this a current diagnosis for this admission?: Yes Plan: Pt will need Rehab (7) Low back pain Qualifiers: Chronicity: chronic Is this a current diagnosis for this admission?: Yes Plan: Supportive care (8) DVT prophylaxis Is this a current diagnosis for this admission?: Yes Plan: Heparin - Time Time Spent with patient: 15-24 minutes
[2016-11-26] MEDS: SIMVASTATIN 10 MG TABLET PO SCH (23:19)
[2016-11-26] MEDS: FLUTICASONE NASAL SPRAY 50 MCG/SPRY 120 SPRAY/16 GM NAREB SCH (23:25)
[2016-11-26] MEDS: IMIPRAMINE PAMOATE 75 MG PO SCH (23:25)
[2016-11-26] MEDS: ROPINIROLE HCL 2 MG TABLET PO SCH (23:29)
[2016-11-27 05:18] LABS: ANION GAP 11 (5-19); BLOOD UREA NITROGEN 15 mg/dL (7-20); CALCIUM 9.3 mg/dL (8.4-10.2); CARBON DIOXIDE 25 mmol/L (22-30); CHLORIDE 105 mmol/L (98-107); CREATININE RESULT 0.82 mg/dL (0.52-1.25); GLUCOSE 98 mg/dL (75-110); POTASSIUM 3.7 mmol/L (3.6-5.0); SODIUM 140.7 mmol/L (137-145)
[2016-11-27] MEDS: HEPARIN SOD (PORCINE) 5,000 UNIT/ML 1 ML SYRINGE SUBCUT SCH ×3 (06:54→22:36)
[2016-11-27] MEDS: MORPHINE SULFATE SR 30 MG TABLET PO PRN (10:03)
[2016-11-27] MEDS: CHOLECALCIFEROL (D3) 400 UNIT TABLET PO SCH ×2 (10:03→17:21)
[2016-11-27] MEDS: DOCUSATE SODIUM 100 MG CAPSULE PO SCH ×2 (10:04→17:21)
[2016-11-27] MEDS: ARIPIPRAZOLE 5 MG TABLET PO SCH (10:04)
[2016-11-27] MEDS: VENLAFAXINE HCL 75 MG CAP.SR.24H PO SCH ×2 (10:04→22:36)
[2016-11-27] MEDS: CLOPIDOGREL BISULFATE 75 MG TABLET PO SCH (10:04)
[2016-11-27] MEDS: CEPHALEXIN 500 MG CAPSULE PO SCH ×2 (10:04→22:35)
[2016-11-27] MEDS: THIAMINE HCL 100 MG TABLET PO SCH ×2 (10:05→17:21)
[2016-11-27] MEDS: TOPIRAMATE 100 MG TABLET PO SCH ×2 (10:05→22:36)
[2016-11-27] MEDS: MODAFINIL 100 MG TABLET PO SCH ×2 (10:11→12:48)
[2016-11-27] MEDS: Mirabegron [Myrbetriq] 50 MG PO SCH (10:13)
[2016-11-27] MEDS: NYSTATIN TOPICAL POWDER 15 GM TP SCH ×4 (10:14→22:38)
--- NOTE | 2016-11-27 14:19 | PDOC PROGRESS REPORT ---
Subjective Progress Note for:: 11/27/16 Subjective:: Pt states that this morning he was confused. Pt states that he is aware when he gets mixed up. reports that pt has been doing this for several months. and Patient states that he called his son and told him to pick him up from the hospital. Nursing states that they noticed that pt was confused this morning but at time of my admission back to baseline. Physical Exam Vital Signs: Temp Pulse Resp BP Pulse Ox 97.5 F 87 18 111/64 97 11/27/16 11:09 11/27/16 11:09 11/27/16 11:09 11/27/16 11:09 11/27/16 11:09 Intake & Output 11/26/16 11/27/16 11/28/16 06:59 06:59 06:59 Intake Total 2770 1960 Output Total 8400 2800 Balance -5630 -840 Weight 126.5 kg 126.6 kg General appearance: PRESENT: no acute distress, well-developed, well-nourished Head exam: PRESENT: atraumatic, normocephalic Eye exam: PRESENT: conjunctiva pink, EOMI. ABSENT: scleral icterus Ear exam: PRESENT: normal external ear exam Mouth exam: PRESENT: moist, tongue midline Neck exam: ABSENT: carotid bruit, JVD, lymphadenopathy, thyromegaly Respiratory exam: PRESENT: clear to auscultation cedric. ABSENT: rales, rhonchi, wheezes Cardiovascular exam: PRESENT: RRR. ABSENT: diastolic murmur, rubs, systolic murmur Pulses: PRESENT: normal dorsalis pedis pul Vascular exam: PRESENT: normal capillary refill GI/Abdominal exam: PRESENT: normal bowel sounds, soft. ABSENT: distended, guarding, mass, organolmegaly, rebound, tenderness Rectal exam: PRESENT: deferred Extremities exam: PRESENT: full ROM, other - + 1 pitting edema of lower ext.. ABSENT: calf tenderness, clubbing Neurological exam: PRESENT: alert, awake, oriented to person, oriented to place , oriented to time, oriented to situation, CN II-XII grossly intact. ABSENT: motor sensory deficit Psychiatric exam: PRESENT: appropriate affect, normal mood. ABSENT: homicidal ideation, suicidal ideation Skin exam: PRESENT: dry, intact, warm. ABSENT: cyanosis, rash Results Laboratory Results: 11/26/16 04:34 11/27/16 04:32 11/27/16 04:32 Sodium 140.7 Potassium 3.7 Chloride 105 Carbon Dioxide 25 Anion Gap 11 BUN 15 Creatinine 0.82 Est GFR ( Amer) > 60 Est GFR (Non-Af Amer) > 60 Glucose 98 Calcium 9.3 11/23/16 11/23/16 11/23/16 06:37 06:37 13:35 Creatine Kinase 60 64 CK-MB (CK-2) 0.64 Troponin I < 0.012 11/23/16 13:35 Creatine Kinase CK-MB (CK-2) 0.57 Troponin I < 0.012 Impressions: Chest X-Ray 11/22/16 00:00 IMPRESSION: NO ACUTE RADIOGRAPHIC FINDING IN THE CHEST. Limited or Localized CT 11/22/16 22:37 IMPRESSION: PROMINENT STOOL THROUGHOUT THE COLON, POSSIBLY CONSTIPATION. OTHER INCIDENTAL CHRONIC FINDINGS ABOVE. NO OTHER SIGNIFICANT OR ACUTE PROCESS IN THE ABDOMEN OR PELVIS. Head CT 11/23/16 00:00 IMPRESSION: NO ACUTE FINDINGS. Assessment & Plan - Diagnosis (1) Sepsis Qualifiers: Qualified Code(s): A41.9 - Sepsis, unspecified organism Is this a current diagnosis for this admission?: Yes Plan: Secondary to Acinetobacter baumannii: Will continue on keflex. (2) Hypokalemia Is this a current diagnosis for this admission?: Yes Plan: Resolved. (3) UTI (urinary tract infection) Qualifiers: Urinary tract infection type: acute cystitis Hematuria presence: without hematuria Qualified Code(s): N30.00 - Acute cystitis without hematuria Is this a current diagnosis for this admission?: Yes Plan: Secondary to Acinetobacter Baumannii: Will continue keflex. (4) Delirium Is this a current diagnosis for this admission?: Yes Plan: Most likely Multifactorial ie Medication: CT of head no acute findings. Will check TSH and Free T4, Vit B12, RPR. (5) Chronic pain Is this a current diagnosis for this admission?: Yes Plan: With Spinal Cord Stimulator: Continue current pain regimen. (6) Venous stasis Is this a current diagnosis for this admission?: Yes Plan: Supportive care. (7) Gait abnormality Is this a current diagnosis for this admission?: Yes Plan: Pt will need Rehab (8) Low back pain Qualifiers: Chronicity: chronic Is this a current diagnosis for this admission?: Yes Plan: Supportive care (9) DVT prophylaxis Is this a current diagnosis for this admission?: Yes Plan: Heparin
[2016-11-27] MEDS: ROPINIROLE HCL 2 MG TABLET PO SCH (22:36)
[2016-11-27] MEDS: SIMVASTATIN 10 MG TABLET PO SCH (22:36)
[2016-11-27] MEDS: FLUTICASONE NASAL SPRAY 50 MCG/SPRY 120 SPRAY/16 GM NAREB SCH (22:36)
[2016-11-27] MEDS: IMIPRAMINE PAMOATE 75 MG PO SCH (22:36)
[2016-11-28 06:45] LABS: THYROID STIMULATING HORMONE 1.78 uIU/mL (0.47-4.68)
[2016-11-28] MEDS: HEPARIN SOD (PORCINE) 5,000 UNIT/ML 1 ML SYRINGE SUBCUT SCH ×3 (07:02→22:23)
[2016-11-28] MEDS: DOCUSATE SODIUM 100 MG CAPSULE PO SCH ×2 (10:26→17:46)
[2016-11-28] MEDS: CEPHALEXIN 500 MG CAPSULE PO SCH ×2 (10:26→22:23)
[2016-11-28] MEDS: MODAFINIL 100 MG TABLET PO SCH ×2 (10:26→15:59)
[2016-11-28] MEDS: VENLAFAXINE HCL 75 MG CAP.SR.24H PO SCH ×2 (10:26→22:23)
[2016-11-28] MEDS: ARIPIPRAZOLE 5 MG TABLET PO SCH (10:26)
[2016-11-28] MEDS: TOPIRAMATE 100 MG TABLET PO SCH ×2 (10:27→22:24)
[2016-11-28] MEDS: CLOPIDOGREL BISULFATE 75 MG TABLET PO SCH (10:27)
[2016-11-28] MEDS: THIAMINE HCL 100 MG TABLET PO SCH ×2 (10:27→17:46)
[2016-11-28] MEDS: Mirabegron [Myrbetriq] 50 MG PO SCH (10:27)
[2016-11-28] MEDS: NYSTATIN TOPICAL POWDER 15 GM TP SCH ×4 (10:27→22:22)
[2016-11-28] MEDS: CHOLECALCIFEROL (D3) 400 UNIT TABLET PO SCH ×2 (10:28→17:46)
--- NOTE | 2016-11-28 15:04 | PDOC PROGRESS REPORT ---
Subjective Progress Note for:: 11/28/16 Subjective:: Pt seen earlier this morning. Pt states that he is doing well. Nurse states that pt had no other issues overnight. Spoke to pt's who states that she was hoping pt would be transferred. Physical Exam Vital Signs: Temp Pulse Resp BP Pulse Ox 97.7 F 80 18 109/68 99 11/28/16 12:00 11/28/16 12:00 11/28/16 12:00 11/28/16 12:00 11/28/16 12:00 Intake & Output 11/27/16 11/28/16 11/29/16 06:59 06:59 06:59 Intake Total 1960 2760 Output Total 2800 4800 Balance -840 -2040 Weight 126.6 kg 126.6 kg General appearance: PRESENT: no acute distress, well-developed, well-nourished Head exam: PRESENT: atraumatic, normocephalic Eye exam: PRESENT: conjunctiva pink, EOMI. ABSENT: scleral icterus Ear exam: PRESENT: normal external ear exam Mouth exam: PRESENT: moist, tongue midline Neck exam: ABSENT: carotid bruit, JVD, lymphadenopathy, thyromegaly Respiratory exam: PRESENT: clear to auscultation cedric. ABSENT: rales, rhonchi, wheezes Cardiovascular exam: PRESENT: RRR. ABSENT: diastolic murmur, rubs, systolic murmur Pulses: PRESENT: normal dorsalis pedis pul Vascular exam: PRESENT: normal capillary refill GI/Abdominal exam: PRESENT: normal bowel sounds, soft. ABSENT: distended, guarding, mass, organolmegaly, rebound, tenderness Rectal exam: PRESENT: deferred Neurological exam: PRESENT: alert, awake, oriented to person, oriented to place , oriented to time, oriented to situation, CN II-XII grossly intact. ABSENT: motor sensory deficit Psychiatric exam: PRESENT: appropriate affect, normal mood. ABSENT: homicidal ideation, suicidal ideation Skin exam: PRESENT: dry, intact, warm. ABSENT: cyanosis, rash Results Laboratory Results: 11/26/16 04:34 11/27/16 04:32 11/28/16 11/28/16 05:23 05:23 Vitamin B12 303.0 TSH 1.78 Free T4 1.08 09/16/17 09/16/17 09/16/17 06:37 06:37 13:35 Creatine Kinase 60 64 CK-MB (CK-2) 0.64 Troponin I < 0.012 11/23/16 13:35 Creatine Kinase CK-MB (CK-2) 0.57 Troponin I < 0.012 Impressions: Chest X-Ray 11/22/16 00:00 IMPRESSION: NO ACUTE RADIOGRAPHIC FINDING IN THE CHEST. Limited or Localized CT 11/22/16 22:37 IMPRESSION: PROMINENT STOOL THROUGHOUT THE COLON, POSSIBLY CONSTIPATION. OTHER INCIDENTAL CHRONIC FINDINGS ABOVE. NO OTHER SIGNIFICANT OR ACUTE PROCESS IN THE ABDOMEN OR PELVIS. Head CT 11/23/16 00:00 IMPRESSION: NO ACUTE FINDINGS. Assessment & Plan - Diagnosis (1) Sepsis Qualifiers: Qualified Code(s): A41.9 - Sepsis, unspecified organism Is this a current diagnosis for this admission?: Yes Plan: Secondary to Acinetobacter baumannii: Will continue on keflex. (2) Rohini infection of genital region Is this a current diagnosis for this admission?: Yes Plan: Will place on Diflucan. (3) Hypokalemia Is this a current diagnosis for this admission?: Yes Plan: Resolved. (4) UTI (urinary tract infection) Qualifiers: Urinary tract infection type: acute cystitis Hematuria presence: without hematuria Qualified Code(s): N30.00 - Acute cystitis without hematuria Is this a current diagnosis for this admission?: Yes Plan: Secondary to Acinetobacter Baumannii: Will continue keflex. (5) Delirium Is this a current diagnosis for this admission?: Yes Plan: Most likely Multifactorial ie Medication: CT of head no acute findings. RPR pending. TSH/Free T4 and Vit B12 within normal limits. (6) Chronic pain Is this a current diagnosis for this admission?: Yes Plan: With Spinal Cord Stimulator: Continue current pain regimen. (7) Venous stasis Is this a current diagnosis for this admission?: Yes Plan: Supportive care. (8) Gait abnormality Is this a current diagnosis for this admission?: Yes Plan: Pt will need Rehab (9) Low back pain Qualifiers: Chronicity: chronic Is this a current diagnosis for this admission?: Yes Plan: Supportive care (10) DVT prophylaxis Is this a current diagnosis for this admission?: Yes Plan: Heparin - Time Time Spent with patient: 15-24 minutes - Awaiting for placement.
[2016-11-28] MEDS ORDERED: FLUCONAZOLE 100 MG TABLET PO ONE (15:30)
[2016-11-28] MEDS: MORPHINE SULFATE SR 30 MG TABLET PO PRN (15:59)
[2016-11-28] MEDS: FLUTICASONE NASAL SPRAY 50 MCG/SPRY 120 SPRAY/16 GM NAREB SCH (22:22)
[2016-11-28] MEDS: ROPINIROLE HCL 2 MG TABLET PO SCH (22:23)
[2016-11-28] MEDS: SIMVASTATIN 10 MG TABLET PO SCH (22:23)
[2016-11-28] MEDS: IMIPRAMINE PAMOATE 75 MG PO SCH (22:23)
[2016-11-29] MEDS: MORPHINE SULFATE SR 30 MG TABLET PO PRN (03:39)
[2016-11-29] MEDS: HEPARIN SOD (PORCINE) 5,000 UNIT/ML 1 ML SYRINGE SUBCUT SCH (06:57)
[2016-11-29] MEDS: VENLAFAXINE HCL 75 MG CAP.SR.24H PO SCH (09:09)
[2016-11-29] MEDS: ARIPIPRAZOLE 5 MG TABLET PO SCH (09:10)
[2016-11-29] MEDS: CHOLECALCIFEROL (D3) 400 UNIT TABLET PO SCH (09:10)
[2016-11-29] MEDS: TOPIRAMATE 100 MG TABLET PO SCH (09:10)
[2016-11-29] MEDS: THIAMINE HCL 100 MG TABLET PO SCH (09:10)
[2016-11-29] MEDS: CEPHALEXIN 500 MG CAPSULE PO SCH (09:10)
[2016-11-29] MEDS: MODAFINIL 100 MG TABLET PO SCH (09:10)
[2016-11-29] MEDS: DOCUSATE SODIUM 100 MG CAPSULE PO SCH (09:11)
[2016-11-29] MEDS: CLOPIDOGREL BISULFATE 75 MG TABLET PO SCH (09:11)
[2016-11-29] MEDS: Mirabegron [Myrbetriq] 50 MG PO SCH (09:11)
[2016-11-29] MEDS: NYSTATIN TOPICAL POWDER 15 GM TP SCH (09:11)
--- NOTE | 2016-11-29 09:56 | PDOC DISCHARGE SUMMARY ---
General - Admit/Disc Date/PCP Admission Date/Primary Care Provider: 11/22/16 23:18 KIMBERLY GORDON MD Discharge Date: 11/29/16 - Discharge Diagnosis (1) Sepsis Is this a current diagnosis for this admission?: Yes Summary: Secondary to Acinetobacter Baumannii: Will continue Keflex until 12/05/2016 (2) Rohini infection of genital region Is this a current diagnosis for this admission?: Yes Summary: Pt placed on Diflucan until 12/03/2016. (3) Hypokalemia Is this a current diagnosis for this admission?: Yes Summary: Resolved. (4) UTI (urinary tract infection) Is this a current diagnosis for this admission?: Yes Summary: Secondary to Acinetobacter Baumannii: Pt will continue keflex until 12/05/16. (5) Delirium Is this a current diagnosis for this admission?: Yes Summary: Secondary to MARIA A and Opioid Medication: Resolving. Pt needs to wear CPAP when sleeping or napping. (6) Chronic pain Is this a current diagnosis for this admission?: Yes Summary: Continue pt's current pain medication. (7) Venous stasis Is this a current diagnosis for this admission?: Yes Summary: Supportive Care. (8) Gait abnormality Is this a current diagnosis for this admission?: Yes Summary: Short term Rehab. (9) Low back pain Is this a current diagnosis for this admission?: Yes Summary: Continue current pain management. (10) Acute metabolic encephalopathy Is this a current diagnosis for this admission?: Yes Summary: Secondary to Sepsis, MARIA A, and Opioid medication: Resolved. - Additional Information Resuscitation Status: Full Code Discharge Diet: As Tolerated, Cardiac Discharge Activity: Activity As Tolerated, Energy Conservation, Keep Legs Elevated Home Medications: Aripiprazole [Abilify 10 mg Tablet] 10 mg PO DAILY@0900 11/23/16 Cholecalciferol (Vitamin D3) [Vitamin D3 400 Unit Tablet] 400 unit PO BID Clopidogrel Bisulfate [Plavix 75 mg Tablet] 75 mg PO DAILY 11/23/16 Diazepam [Valium 5 mg Tablet] 5 mg PO BIDP PRN 11/23/16 Diclofenac Epolamine [Flector] 1 patch TOP BID 11/23/16 Diclofenac Sodium [Voltaren] 4 gm TOP QID 11/23/16 Docusate Sodium [Colace 100 mg Capsule] 100 mg PO BID 11/23/16 Furosemide [Lasix 40 mg Tablet] 40 mg PO BID 11/23/16 Imipramine Pamoate [Tofranil-Pm] 75 mg PO QHS 11/23/16 Ipratropium Crane 2 spray NASL BIDP PRN 11/23/16 Melatonin 10 mg PO QHS 11/23/16 Mirabegron [Myrbetriq] 50 mg PO DAILY 11/23/16 Modafinil [Provigil] 200 mg PO BID@0900,1200 11/23/16 Potassium Chloride [Klor-Con 10 Meq Tablet.sa] 10 meq PO BID 11/23/16 Simvastatin [Zocor 20 mg Tablet] 20 mg PO QHS 11/23/16 Thiamine HCl [Thiamine 100 mg Tablet] 200 mg PO BID 11/23/16 Topiramate [Topamax] 100 mg PO Q12 11/23/16 Venlafaxine HCl [Venlafaxine HCl ER] 150 mg PO Q12 11/23/16 Acetaminophen [Tylenol 325 mg Tablet] 650 mg PO Q4HP PRN tablet 11/29/16 Aripiprazole [Abilify 5 mg Tablet] 5 mg PO DAILY tablet 11/29/16 Bisacodyl [Dulcolax 10 mg Supp.rect] 10 mg NH DAILYP PRN supp.rect 11/29/16 Cephalexin Monohydrate [Keflex 500 mg Capsule] 500 mg PO Q12 capsule 11/29/16 Clopidogrel Bisulfate [Plavix 75 mg Tablet] 75 mg PO DAILY tablet 11/29/16 Diazepam [Valium 5 mg Tablet] 10 mg PO HSP PRN #5 tablet 11/29/16 Fluconazole [Diflucan 100 mg Tablet] 150 mg PO DAILY tablet 11/29/16 Fluticasone Propionate [Flonase Nasal [place] 50 Mcg/[place] 16 gm] 1 spray NAREB QHS spray.pump 11/29/16 Mag Hydrox/Al Hydrox/Simeth [Maalox Plus Susp 30 Udcup] 30 ml PO Q6HP PRN udc 11/29/16 Morphine Sulfate [Morphine Sulfate ER] 30 mg PO Q8 #5 tablet.er 11/29/16 Nystatin [Mycostatin Topical Powder 15 gm] 1 applic TP QID bottle 11/29/16 Ropinirole HCl [Requip] 4 mg PO QHS #5 tablet 11/29/16 History of Present Illness Patient complains of: Altered Mental Status History of Present Illness: ADALID MUELLER is a 61 year old male presented with Altered Mental Status. Hospital Course Hospital Course: Patient is a 61-year-old male who presented to our facility with complaint of altered mental status. Family was concerned the patient had taken too much medication. Family also reported that patient had blood tinged urine. Patient had urine culture and blood cultures done during this hospitalization and was placed on broad-spectrum antibiotics. Patient's urine culture grew back Acinetobacter. Patient's antibiotics were tailored for infection. Patient's mental status did improve however family did report that patient is not compliant with wearing CPAP as instructed. Family also reported that there was concern that patient may have missed used his pain medication which contributed for patient's confusion as well. She was unable to keep his appointment with an orthopedic doctor for left hip surgery evaluation therefore this will need to be reason scheduled. Patient was also found to have a candidal yeast infection which patient is currently on Diflucan. Current plan is for patient to complete Diflucan treatment on 12/03/2016. Patient has completed antibiotic treatment for UTI on 12/05/2016. Patient is being discharged to [place] for rehab. Physical Exam Vital Signs: Temp Pulse Resp BP Pulse Ox 97.5 F 82 18 109/72 95 11/29/16 07:13 11/29/16 07:13 11/29/16 07:13 11/29/16 07:13 11/29/16 07:13 Intake & Output 11/28/16 11/29/16 11/30/16 06:59 06:59 06:59 Intake Total 2760 2550 Output Total 4800 3950 Balance -2040 -1400 Weight 126.6 kg 123.9 kg General appearance: PRESENT: no acute distress, well-developed, well-nourished Head exam: PRESENT: atraumatic, normocephalic Eye exam: PRESENT: conjunctiva pink, EOMI. ABSENT: scleral icterus Ear exam: PRESENT: normal external ear exam Mouth exam: PRESENT: moist, tongue midline Neck exam: ABSENT: carotid bruit, JVD, lymphadenopathy, thyromegaly Respiratory exam: PRESENT: clear to auscultation cedric. ABSENT: rales, rhonchi, wheezes Cardiovascular exam: PRESENT: RRR. ABSENT: diastolic murmur, rubs, systolic murmur Pulses: PRESENT: normal dorsalis pedis pul GI/Abdominal exam: PRESENT: normal bowel sounds, soft. ABSENT: distended, guarding, mass, organolmegaly, rebound, tenderness Rectal exam: PRESENT: deferred Neurological exam: PRESENT: alert, awake, oriented to person, oriented to place , oriented to time, oriented to situation, CN II-XII grossly intact. ABSENT: motor sensory deficit Results Laboratory Results: 11/26/16 04:34 11/27/16 04:32 11/23/16 11/23/16 11/23/16 06:37 06:37 13:35 Creatine Kinase 60 64 CK-MB (CK-2) 0.64 Troponin I < 0.012 11/23/16 13:35 Creatine Kinase CK-MB (CK-2) 0.57 Troponin I < 0.012 Impressions: Chest X-Ray 11/22/16 00:00 IMPRESSION: NO ACUTE RADIOGRAPHIC FINDING IN THE CHEST. Limited or Localized CT 11/22/16 22:37 IMPRESSION: PROMINENT STOOL THROUGHOUT THE COLON, POSSIBLY CONSTIPATION. OTHER INCIDENTAL CHRONIC FINDINGS ABOVE. NO OTHER SIGNIFICANT OR ACUTE PROCESS IN THE ABDOMEN OR PELVIS. Head CT 11/23/16 00:00 IMPRESSION: NO ACUTE FINDINGS. Qualifiers VTE patient discharged on overlapping Therapy?: Yes
[2016-11-29] MEDS ORDERED: FLUCONAZOLE 100 MG TABLET PO SCH (10:00)
[2016-11-29 12:05] VITALS: BP 146/70
== END 2016-11-29 14:40 | DRG 871 ==
LOC: ER 19:39 → EH 22:57 → UNDOADMIN 22:57 → EH 23:18 → ICU 11-23 01:48 → 5 11-24 23:25
PROVIDERS: ADMIT Internal Medicine; ATTEND Internal Medicine
PROC: 3E0F73Z Introduction of Anti-inflammatory into Respiratory Tract, Via Natural or Artificial Opening (ICD-10-PCS; principal; 2016-11-23)
DX: A41.89 Other specified sepsis (principal); G92 Toxic encephalopathy; N30.00 Acute cystitis without hematuria; B37.89 Other sites of candidiasis; G89.28 Other chronic postprocedural pain; T40.2X5A Adverse effect of other opioids, initial encounter; I87.8 Other specified disorders of veins; G47.30 Sleep apnea, unspecified; F41.9 Anxiety disorder, unspecified; Z79.891 Long term (current) use of opiate analgesic; M19.90 Unspecified osteoarthritis, unspecified site; Z96.652 Presence of left artificial knee joint; R32 Unspecified urinary incontinence; I95.9 Hypotension, unspecified; E87.6 Hypokalemia; R26.9 Unspecified abnormalities of gait and mobility; Z79.899 Other long term (current) drug therapy; Z86.73 Personal history of transient ischemic attack (TIA), and cerebral infarction without residual deficits
CPT/HCPCS: 36415; 70450; 71010; 76380; 80048; 80053; 80307; 81001; 82550; 82553; 82607; 82803; 83605; 83735; 84439; 84443; 84484; 85025; 85610; 86592; 87040; 87086; 87088; 87186; 93005; 93010; 94640; 96361; 96365; 99291; 99292; G8978-GP; G8979-GP; J0692; J1335; J1644; J2310; J3490; J7030; J7040; J7060; J7620